=== PATIENT | female | born 1955 | race Caucasian/White ===

== ENCOUNTER 2017-12-17 08:18 | Emergency (ER) | payer OTHER ==
--- NOTE | 2017-12-17 08:53 | RADIOLOGY REPORT (SQ) ---
EXAM DESCRIPTION: WRIST RIGHT 3 VIEWS COMPLETED DATE/TIME: 12/17/2017 8:32 am REASON FOR STUDY: caught in work cart COMPARISON: None. NUMBER OF VIEWS: Three views right wrist. LIMITATIONS: None. FINDINGS: Normal carpal alignment. Linear heterogeneous density through the distal pole of the scap hoid is likely artifact. Pronounced regional soft tissue swelling is present. OTHER: No other significant finding. IMPRESSION: 1. Suspect artifact through the scaphoid. Further dedicated scaphoid views may prove he lpful to further evaluate, however. Marked soft tissue swelling. TECHNICAL DOCUMENTATION: JOB ID: [id number] Reading location - IP/workstation name: [email or web address]
--- NOTE | 2017-12-17 09:44 | ER Document Report ---
HPI - HPI Pain Level: 5 Notes: Patient is a 62-year-old female with no significant past medical history who presents to the ED complaining of right wrist pain status post injury 2 days ago while at work. Patient states that she was pushing a cart when it got stuck on a bump causing her hand to go forward. Patient states that she has had pain since then. Patient states that she did try to work the next day, but reaggravated it. Patient states that she has throbbing and soreness associated. She has not noticed any bruising, but has noticed some swelling. Denies any drug allergies. Denies any IV drug use. Denies any headache, fever , URI, sore throat, chest pain, palpitations, syncope, cough, shortness of breath, wheeze, dyspnea, abdominal pain, nausea/vomiting/diarrhea, urinary retention, dysuria, hematuria, numbness/tingling, muscle paralysis/weakness, or rash. - ROS Systems Reviewed and Negative: Yes All other systems reviewed and negative - CONSTITUTIONAL Constitutional: DENIES: Fever, Chills - MUSCULOSKELETAL Musculoskeletal: REPORTS: Extremity pain - right wrist/hand since friday Past Medical History - Social History Smoking Status: Current Every Day Smoker Family History: Reviewed & Not Pertinent Patient has suicidal ideation: No Patient has homicidal ideation: No Renal/ Medical History: Denies: Hx Peritoneal Dialysis Vertical Provider Document - CONSTITUTIONAL Agree With Documented VS: Yes Notes: PHYSICAL EXAMINATION: GENERAL: Well-appearing, well-nourished and in no acute distress. LUNGS: Breath sounds clear to auscultation bilaterally and equal. No wheezes rales or rhonchi. HEART: Regular rate and rhythm without murmurs, rubs, gallops. Musculoskeletal: Rt wrist/hand: + mild swelling at the wrist. FROM to passive/ active. Strength 4+/5 due to pain. N/V intact distal. + mild tenderness to the wrist and near the scaphoid. No other bony tenderness noted. Extremities: No cyanosis, clubbing, or edema b/l. Peripheral pulses 2+. Capillary refill less than 3 seconds. NEUROLOGICAL: Normal speech, normal gait. Normal sensory, motor exams PSYCH: Normal mood, normal affect. SKIN: Warm, Dry, normal turgor, no rashes or lesions noted. - INFECTION CONTROL TRAVEL OUTSIDE OF THE [place] IN LAST 30 DAYS: No Course - Re-evaluation Re-evalutation: 12/17/17 10:08 Patient is an afebrile, well-hydrated, 62-year-old female who presents to the ED with Rt wrist/hand pain which I suspect to be a sprain versus strain. Vitals are acceptable without any significant tachycardia, tachypnea, or hypoxia. PE is otherwise unremarkable for any neurovascular compromise, obvious tendon/ligament rupture, obvious fracture/dislocation, septic joint. X- ray's unremarkable for any acute pathology. Pt did have mild tenderness at her scaphoid, so thumb spica was placed. Patient is nontoxic-appearing. No other labs or imaging warranted at this time based on H&P. Conservative measures otherwise for symptoms. Recheck with your PCM in 3-5 days. Schedule a consult with Ortho for further eval and management. Return to the ED with any worsening /concerning symptoms otherwise as reviewed in discharge. Patient is in agreement. - Vital Signs Vital signs: Temp Pulse Resp BP Pulse Ox 98.1 F 71 14 164/81 H 96 12/17/17 08:23 12/17/17 08:23 12/17/17 08:23 12/17/17 08:23 12/17/17 08:23 Discharge - Discharge Clinical Impression: Right wrist pain Condition: Stable Disposition: HOME, SELF-CARE Additional Instructions: Rest, Ice, Compression, Elevation Use splint as directed Tylenol/ibuprofen as needed F/u with your PCP in 3-5 days for a recheck Orthopedics today to schedule an appointment for further evaluation and management Return to the ED with any worsening symptoms and/or development of fever, headache, chest pain, palpitations, syncope, shortness of breath, trouble breathing, abdominal pain, n/v/d, muscle weakness/paralysis, numbness/tingling, swelling, redness, or other worsening symptoms that are concerning to you. Forms: Elevated Blood Pressure, Smoking Cessation Education Referrals: [facility] [Provider Group] - Follow up in 3-5 days
--- NOTE | 2017-12-17 10:08 | RADIOLOGY REPORT (SQ) ---
EXAM DESCRIPTION: WRIST RIGHT 3 VIEWS COMPLETED DATE/TIME: 12/17/2017 9:59 am REASON FOR STUDY: dedicated scaphoid views per radiologist COMPARISON: None. NUMBER OF VIEWS: Three views. TECHNIQUE: AP, lateral, and oblique radiographic images acquired of the right wrist. LIMITATIONS: None. FINDINGS: MINERALIZATION: Osteopenia. BONES: No acute fracture or dislocation. No worrisome bone lesions. Normal alignment. SOFT TISSUES: No soft tissue swelling. No foreign body. OTHER: Degenerative changes at the interphalangeal joint of the thumb. IMPRESSION: 1. NEGATIVE STUDY OF THE RIGHT WRIST. 2. If symptoms are persistent, follow-up examination is suggested for re-evaluation. TECHNICAL DOCUMENTATION: JOB ID: [id number] [employer]- All Rights Reserved Reading location - IP/workstation name: [email or web address]
[2017-12-17] MEDS ORDERED: IBUPROFEN 600 MG TABLET PO ONE (10:13)
[2017-12-17] MEDS ORDERED: ACETAMINOPHEN 325 MG TABLET PO ONE (10:13)
[2017-12-17 10:52] VITALS: BP 167/73
== END 2017-12-17 10:52 | disposition home or self-care (01) ==
LOC: ER 08:18
DX: M25.531 Pain in right wrist (principal); F17.200 Nicotine dependence, unspecified, uncomplicated
CPT/HCPCS: 99283